=== PATIENT | male | born 1955 | race African-American/Black ===

== ENCOUNTER 2020-02-16 14:23 | Outpatient (REF) | payer OTHER, SELFPAY ==
[2020-02-16 15:58] LABS: PSA,Total (Free>4and<10) 0.34 ng/mL (0.00-4.00)
== END 2020-02-16 14:24 | disposition home or self-care (01) ==
LOC: HO.LAB 14:23
PROVIDERS: PCP Internal Medicine; Visit Provider Urology
DX: N40.1 Benign prostatic hyperplasia with lower urinary tract symptoms (principal); Z80.42 Family history of malignant neoplasm of prostate
CPT/HCPCS: 84153

== ENCOUNTER → 2020-02-17 09:27 | Outpatient (BNVA) | payer OTHER, SELFPAY | PROVIDERS: PCP Internal Medicine; Visit Provider Urology | DX: Z13.89 Encounter for screening for other disorder (principal) | CPT/HCPCS: Q3014 ==